=== PATIENT | female | born 1955 | race Two or more races ===

== ENCOUNTER 2023-06-11 06:34 | Outpatient (CLI) | payer OTHER | END 2023-06-11 06:37 | disposition home or self-care (01) | LOC: LAB 06:34 | DX: Z20.828 Contact with and (suspected) exposure to other viral communicable diseases (principal) ==

== ENCOUNTER → 2023-06-11 | Day surgery (SDC) | payer OTHER | END | disposition home or self-care (01) | LOC: ADM 06-06 14:15 → AMB-ENDOS 06:45 → CIR.AMB 14:15 | PROVIDERS: ATTEND Colon & Rectal Surgery | DX: D12.3 Benign neoplasm of transverse colon (principal); Z20.822 Contact with and (suspected) exposure to COVID-19; K35.80 Unspecified acute appendicitis ==

== ENCOUNTER 2023-09-17 06:00 | Day surgery (SDC) | payer OTHER | END 2023-09-17 11:15 | disposition home or self-care (01) | LOC: AMB-ENDOS 06:00 → CIR.AMB 13:15 | PROVIDERS: ATTEND Colon & Rectal Surgery | DX: K52.89 Other specified noninfective gastroenteritis and colitis (principal); K63.5 Polyp of colon; Z20.822 Contact with and (suspected) exposure to COVID-19 ==